=== PATIENT | female | born 1955 | race Caucasian/White ===

== ENCOUNTER → 2017-04-17 | Outpatient (REF) | payer BC, SELFPAY | LOC: M LAB REF 13:01 | PROVIDERS: ATTEND Nurse Practitioner Women's Health | DX: R30.0 Dysuria (principal) ==

== ENCOUNTER → 2017-07-18 | Outpatient (CLI) | payer BC ==
[2017-07-18 07:29] LABS: ALBUMIN 3.3 GM/DL (3.2-5.2); ALBUMIN/GLOBULIN RATIO 1.06 (1.00-1.93); ALKALINE PHOSPHATASE 68 U/L (45-117); ALT/SGPT 22 U/L (12-78); ANION GAP 6 MEQ/L (8-16); AST/SGOT 9 U/L (15-37); BILIRUBIN,TOTAL 0.6 MG/DL (0.2-1.0); BLOOD UREA NITROGEN 12 MG/DL (7-18); CALCIUM LEVEL 8.8 MG/DL (8.8-10.2); CARBON DIOXIDE LEVEL 29 MEQ/L (21-32); CHLORIDE LEVEL 109 MEQ/L (98-107); CHOLESTEROL LEVEL 174 MG/DL (<200); CREATININE FOR GFR 0.67 MG/DL (0.55-1.02); GLOMERULAR FILTRATION RATE > 60.0 (>45); GLUCOSE, FASTING 87 MG/DL (80-110); POTASSIUM SERUM 4.3 MEQ/L (3.5-5.1); SODIUM LEVEL 144 MEQ/L (136-145); TOTAL PROTEIN 6.4 GM/DL (6.4-8.2); TRIGLYCERIDES LEVEL 63 MG/DL (<150)
== END ==
LOC: M LAB 06:20
PROVIDERS: ATTEND Nurse Practitioner Women's Health
DX: Z00.00 Encounter for general adult medical examination without abnormal findings (principal)

== ENCOUNTER → 2018-05-14 | Outpatient (CLI) | payer BC ==
[2018-05-14 07:20] LABS: BASO % 0.7 % (0.0-1.0); EOS # 0.2 10^3/uL (0.0-0.50); EOS % 3.1 % (0.0-3.0); HEMATOCRIT 43.6 % (36.0-47.0); HEMOGLOBIN 14.2 g/dl (12.0-15.5); IMMATURE GRANULOCYTE % 0.3 % (0-3.0); LYMPH # 2.3 10^3/uL (1.5-4.5); LYMPH % 38.4 % (24.0-44.0); MEAN CORPUSCULAR HEMOGLOBIN 29.5 pg (27.0-33.0); MEAN CORPUSCULAR HGB CONC 32.6 g/dl (32.0-36.5); MEAN CORPUSCULAR VOLUME 90.5 fl (80.0-96.0); MONO # 0.6 10^3/uL (0.0-0.8); MONO % 9.5 % (0.0-5.0); NEUTROPHILS # 2.8 10^3/uL (1.8-7.7); PLATELET COUNT, AUTOMATED 379 10^3/uL (150-450); RED BLOOD COUNT 4.82 10^6/uL (4.00-5.40); WHITE BLOOD COUNT 5.9 10^3/uL (4.0-10.0)
[2018-05-14 07:57] LABS: ALBUMIN 3.5 GM/DL (3.2-5.2); ALBUMIN/GLOBULIN RATIO 0.97 (1.00-1.93); ALKALINE PHOSPHATASE 71 U/L (45-117); ALT/SGPT 25 U/L (12-78); ANION GAP 6 MEQ/L (8-16); AST/SGOT 15 U/L (7-37); BILIRUBIN,TOTAL 0.8 MG/DL (0.2-1.0); BLOOD UREA NITROGEN 12 MG/DL (7-18); CALCIUM LEVEL 9.1 MG/DL (8.8-10.2); CARBON DIOXIDE LEVEL 30 MEQ/L (21-32); CHLORIDE LEVEL 108 MEQ/L (98-107); CHOLESTEROL LEVEL 153 MG/DL (<200); CHOLESTEROL RISK RATIO 2.217 (<5); CREATININE FOR GFR 0.79 MG/DL (0.55-1.30); GLOMERULAR FILTRATION RATE > 60.0 (>45); GLUCOSE, FASTING 83 MG/DL (70-100); HDL CHOLESTEROL 69 MG/DL (>40); NON-HDL-C 84 MG/DL; POTASSIUM SERUM 4.7 MEQ/L (3.5-5.1); SODIUM LEVEL 144 MEQ/L (136-145); TOTAL PROTEIN 7.1 GM/DL (6.4-8.2); TRIGLYCERIDES LEVEL 75 MG/DL (<150)
== END ==
LOC: M LAB 06:10
DX: Z00.00 Encounter for general adult medical examination without abnormal findings (principal)
CPT/HCPCS: 80053

== ENCOUNTER → 2019-05-10 | Outpatient (CLI) | payer OTHER ==
[2019-05-10 07:53] LABS: ALBUMIN 3.5 GM/DL (3.2-5.2); ALT/SGPT 22 U/L (12-78); BILIRUBIN,TOTAL 0.5 MG/DL (0.2-1.0); BLOOD UREA NITROGEN 12 MG/DL (7-18); CALCIUM LEVEL 8.7 MG/DL (8.8-10.2); CARBON DIOXIDE LEVEL 28 MEQ/L (21-32); CHLORIDE LEVEL 110 MEQ/L (98-107); CHOLESTEROL LEVEL 153 MG/DL (<200); CHOLESTEROL RISK RATIO 2.095 (<5); CREATININE FOR GFR 0.79 MG/DL (0.55-1.30); FREE T4 1.03 NG/DL (0.76-1.46); GLOMERULAR FILTRATION RATE > 60.0 (>45); GLUCOSE, FASTING 80 MG/DL (70-100); HDL CHOLESTEROL 73 MG/DL (>40); LDL CHOLESTEROL 70 MG/DL (<100); NON-HDL-C 80 MG/DL; POTASSIUM SERUM 4.5 MEQ/L (3.5-5.1); SODIUM LEVEL 143 MEQ/L (136-145); TOTAL PROTEIN 6.5 GM/DL (6.4-8.2); TRIGLYCERIDES LEVEL 52 MG/DL (<150)
== END ==
LOC: M LAB 06:03
PROVIDERS: ATTEND Nurse Practitioner Women's Health
DX: Z00.00 Encounter for general adult medical examination without abnormal findings (principal)

== ENCOUNTER → 2020-05-22 | Outpatient (CLI) | payer OTHER ==
[2020-05-22 06:58] LABS: BASO # 0.1 10^3/uL (0.0-0.2); EOS # 0.2 10^3/uL (0.0-0.5); EOS % 3.8 % (0.0-3.0); HEMATOCRIT 45.2 % (36.0-47.0); HEMOGLOBIN 14.8 g/dl (12.0-15.5); LYMPH # 2.2 10^3/uL (1.5-5.0); LYMPH % 36.3 % (24.0-44.0); MEAN CORPUSCULAR HEMOGLOBIN 31.1 pg (27.0-33.0); MEAN CORPUSCULAR HGB CONC 32.7 g/dl (32.0-36.5); MONO # 0.5 10^3/uL (0.0-0.8); MONO % 7.9 % (0.0-5.0); NEUTROPHILS % 50.8 % (36.0-66.0); PLATELET COUNT, AUTOMATED 372 10^3/uL (150-450); RED BLOOD COUNT 4.76 10^6/uL (4.00-5.40)
[2020-05-22 07:59] LABS: CHOLESTEROL RISK RATIO 2.522 (<5)
== END ==
LOC: M LAB 06:12
PROVIDERS: ATTEND Obstetrics & Gynecology
DX: N95.9 Unspecified menopausal and perimenopausal disorder (principal)

== ENCOUNTER → 2020-05-26 | Outpatient (REF) | payer OTHER ==
[2020-05-26 15:28] LABS: APPEARANCE, URINE CLEAR (CLEAR); BACTERIA, URINE AUTO NEGATIVE (NEGATIVE); BILIRUBIN, URINE AUTO NEGATIVE (NEGATIVE); BLOOD, URINE BLOOD NEGATIVE (NEGATIVE); COLOR, URINE YELLOW (YELLOW); GLUCOSE, URINE (UA) AUTO NEGATIVE (NEGATIVE); KETONE, URINE AUTO NEGATIVE (NEGATIVE); LEUKOCYTE ESTERASE, URINE AUTO NEGATIVE (NEGATIVE); MUCUS, URINE SMALL (NEGATIVE); NITRITE, URINE AUTO NEGATIVE (NEGATIVE); PROTEIN, URINE AUTO NEGATIVE (NEGATIVE); RBC, URINE AUTO 1 /HPF (0-3); SPECIFIC GRAVITY URINE AUTO 1.008 (1.002-1.035); SQUAMOUS EPITHELIAL CELL UR AU 0 /HPF (0-6); UROBILINOGEN, URINE AUTO 0.2 mg/dL (0.0-2.0); WBC, URINE AUTO 1 /HPF (0-3)
== END ==
LOC: M LAB REF 13:07
PROVIDERS: ATTEND Obstetrics & Gynecology
DX: N76.0 Acute vaginitis (principal)

== ENCOUNTER → 2020-09-27 | Outpatient (CLI) | payer OTHER ==
--- NOTE | 2020-09-27 14:11 | REP ---
INDICATION: LEFT SIDED PELVIC PAIN. COMPARISON: None. TECHNIQUE: Transabdominal and transvaginal scanning were performed. FINDINGS: Uterine dimensions are normal at 7.0 x 2.3 x 4.0 cm. Endometrial echo is 0.3 cm thick and centrally placed. No free fluid is seen in the cul-de-sac. Visualized bladder diaz are smooth. No focal uterine mass is seen. There is a trace of endometrial fluid. The right ovary has dimensions of 1.2 x 0.8 x 0.8 cm. Left ovary is not seen either transabdominally or transvaginally. No left adnexal mass or cyst is seen.. Visualized urinary bladder diaz are smooth. IMPRESSION: Negative pelvic sonography. Left ovary not directly visualized. No abnormality noted.. <Electronically signed by Cody Kelly > 09/27/20 [id number]
== END ==
LOC: M RAD 12:56
PROVIDERS: ATTEND Internal Medicine
DX: R10.2 Pelvic and perineal pain (principal)

== ENCOUNTER → 2020-12-21 | Outpatient (CLI) | payer OTHER ==
[~2020-12-21] MED LIST: ESTR10TA
== END ==
LOC: M LABSMTC 11:33
PROVIDERS: ATTEND Anesthesiology
DX: Z01.812 Encounter for preprocedural laboratory examination (principal); Z20.822 Contact with and (suspected) exposure to COVID-19

== ENCOUNTER 2020-12-26 08:32 | Day surgery (SDC) | payer OTHER ==
[~2020-12-26] VITALS: Ht 162.6 cm; Wt 79.4 kg
[~2020-12-26 08:32] MED LIST changes: -ACET-907 PO; -IBUP-1114 PO; +LIDOCAINE 2% 100MG/5ML SDV (FOR ANES.) As Ordered ONE; +NS 1,000 ML IV ONE; +propofoL 200 MG/20 ML VIAL As Ordered ONE
--- NOTE | 2020-12-26 10:32 | ROOR ---
Patient Name: Lauren Lisa Procedure Date: 12/26/2020 9:43 AM Date of : 1955 Age: 65 Room: [facility] Gender: Female Note Status: Finalized Procedure: Colonoscopy Indications: Screening for colorectal malignant neoplasm Providers: Kanu Evans MD Referring MD: Fabiana Carter DO Requesting Provider: Medicines: Monitored Anesthesia Care Complications: No immediate complications. Procedure: Pre-Anesthesia Assessment: - Prior to the procedure, a History and Physical was performed, and patient medications and allergies were reviewed. The patient is competent. The risks and benefits of the procedure and the sedation options and risks were discussed with the patient. All questions were answered and informed consent was obtained. Patient identification and proposed procedure were verified by the physician, the nurse and the anesthesiologist in the procedure room. Mental Status Examination: alert and oriented. Airway Examination: normal oropharyngeal airway and neck mobility. Respiratory Examination: clear to auscultation. CV Examination: normal. Prophylactic Antibiotics: The patient does not require prophylactic antibiotics. Prior Anticoagulants: The patient has taken no previous anticoagulant or antiplatelet agents. ASA Grade Assessment: II - A patient with mild systemic disease. After reviewing the risks and benefits, the patient was deemed in satisfactory condition to undergo the procedure. The anesthesia plan was to use monitored anesthesia care (MAC). Immediately prior to administration of medications, the patient was re-assessed for adequacy to receive sedatives. The heart rate, respiratory rate, oxygen saturations, blood pressure, adequacy of pulmonary ventilation, and response to care were monitored throughout the procedure. The physical status of the patient was re-assessed after the procedure. The Colonoscope was introduced through the anus and advanced to the terminal ileum, with identification of the appendiceal orifice and IC valve. The colonoscopy was performed without difficulty. The patient tolerated the procedure well. The quality of the bowel preparation was good. The terminal ileum, ileocecal valve, appendiceal orifice, and rectum were photographed. Scope insertion time was 2 minutes. Scope withdrawal time was 9 minutes. The total duration of the procedure was 12 minutes. Findings: The perianal and digital rectal examinations were normal. The terminal ileum appeared normal. Multiple small and large-mouthed diverticula were found from ascending colon to sigmoid colon. There was no evidence of diverticular bleeding. External and internal hemorrhoids were found during retroflexion. The hemorrhoids were medium-sized. Impression: - The examined portion of the ileum was normal. - Mild diverticulosis from ascending colon to sigmoid colon. There was no evidence of diverticular bleeding. - External and internal hemorrhoids. - No specimens collected. Recommendation: - Patient has a contact number available for emergencies. The signs and symptoms of potential delayed complications were discussed with the patient. Return to normal activities tomorrow. Written discharge instructions were provided to the patient. - High fiber diet. - Continue present medications. - Repeat colonoscopy is not recommended due to current age (66 years or older) depending on clinical and functional status. - Telephone GI clinic if symptomatic in 2 weeks. - Return to primary care physician. Procedure Code(s): --- Professional --- 65131, Colonoscopy, flexible; diagnostic, including collection of specimen(s) by brushing or washing, when performed (separate procedure) Diagnosis Code(s): --- Professional --- Z12.11, Encounter for screening for malignant neoplasm of colon K64.8, Other hemorrhoids K57.30, Diverticulosis of large intestine without perforation or abscess without bleeding CPT copyright 2019 [employer]. All rights reserved. The codes documented in this report are preliminary and upon information coder review may be revised to meet current compliance requirements. Kanu Evans MD Kanu Evans MD 12/26/2020 10:32:31 AM Electronically signed by Kanu Evans MD Number of Addenda: 0 Note Initiated On: 12/26/2020 9:43 AM Estimated Blood Loss: Estimated blood loss was minimal.
[2020-12-26 10:47] VITALS: BP 145/91
[2020-12-28] MEDS ORDERED: ACET-907 PO (14:07)
[2020-12-28] MEDS ORDERED: IBUP-1114 PO (14:07)
== END 2020-12-26 10:55 | disposition home or self-care (01) ==
LOC: M OPP 08:32
PROVIDERS: ATTEND Internal Medicine Gastroenterology
DX: Z12.11 Encounter for screening for malignant neoplasm of colon (principal); K57.30 Diverticulosis of large intestine without perforation or abscess without bleeding; K64.8 Other hemorrhoids; Z79.899 Other long term (current) drug therapy; Z88.2 Allergy status to sulfonamides; Z88.8 Allergy status to other drugs, medicaments and biological substances; S82.64XA Nondisplaced fracture of lateral malleolus of right fibula, initial encounter for closed fracture; X58.XXXA Exposure to other specified factors, initial encounter; Y92.9 Unspecified place or not applicable; Y99.9 Unspecified external cause status
CPT/HCPCS: 73610; G0121

== ENCOUNTER → 2020-12-26 | Outpatient (CLI) | payer OTHER ==
[~2020-12-26] MED LIST changes: +ACET-907 PO; +IBUP-1114 PO
--- NOTE | 2020-12-27 04:31 | REP ---
INDICATION: PAIN IN RIGHT ANKLE. COMPARISON: None. TECHNIQUE: AP, lateral, oblique views of the right ankle FINDINGS: There is an acute oblique fracture of the distal fibular metaphysis with overlying soft tissue swelling. Remainder of the examination demonstrates generalized age-related changes. IMPRESSION: Acute nondisplaced fracture of the distal fibula with soft tissue swelling. <Electronically signed by Pradip Avery > 12/27/20 0427
== END ==
LOC: M SOG 13:40
PROVIDERS: ATTEND Orthopaedic Surgery Sports Medicine
DX: S82.64XA Nondisplaced fracture of lateral malleolus of right fibula, initial encounter for closed fracture (principal); X58.XXXA Exposure to other specified factors, initial encounter; Y92.9 Unspecified place or not applicable; Y99.9 Unspecified external cause status

== ENCOUNTER → 2020-12-29 | Outpatient (CLI) | payer OTHER ==
[~2020-12-29] MED LIST changes: +ACET-907 PO; +IBUP-1114 PO; -LIDOCAINE 2% 100MG/5ML SDV (FOR ANES.) As Ordered ONE; -NS 1,000 ML IV ONE; -propofoL 200 MG/20 ML VIAL As Ordered ONE
== END ==
LOC: M LABSMTC 12:47
PROVIDERS: ATTEND Anesthesiology
DX: Z11.52 Encounter for screening for COVID-19 (principal)

== ENCOUNTER 2021-01-03 07:59 | Day surgery (SDC) | payer OTHER ==
[~2021-01-03] VITALS: Ht 162.6 cm; Wt 79.4 kg
[~2021-01-03 07:59] MED LIST changes: +LR 1,000 ML IV ONE; +ceFAZolin SOD 2 GM in IV 1 EA IV ONE
[2021-01-03] MEDS ORDERED: LIDOCAINE 2% 100MG/5ML SDV (FOR ANES.) As Ordered ONE (08:39)
[2021-01-03] MEDS ORDERED: ONDANSETRON 4MG/2ML VIAL As Ordered ONE (08:39)
[2021-01-03] MEDS ORDERED: HYDROmorphone HCL 2 MG/ML 1ML VIAL (J1170) As Ordered ONE (08:39)
[2021-01-03] MEDS ORDERED: dexameTHASONE 4 MG/ML 1ML VIAL (J1100 PER 1MG) As Ordered ONE (08:39)
[2021-01-03] MEDS ORDERED: ROCURONIUM BROMIDE 50 MG/5 ML VIAL As Ordered ONE (08:39)
[2021-01-03] MEDS ORDERED: MIDAZOLAM INJ 2MG/2ML VIAL (J2250 PER 1MG) As Ordered ONE (08:39)
[2021-01-03] MEDS ORDERED: fentaNYL 100 MCG/2 ML INJECTION (J3010) As Ordered ONE (08:39)
[2021-01-03] MEDS ORDERED: propofoL 200 MG/20 ML VIAL As Ordered ONE ×3 (08:39→14:06)
--- NOTE | 2021-01-03 10:17 | ECGEPIP ---
[facility] Test Date: 2021-01-03 Pat Name: JOSE F ELIZALDE Department: Room: - Gender: Female Color Developer: ARANZA : 1955 Requested By: Geoff Licona Order Number: [id number] Reading MD: Juan Zhu Measurements Intervals Sanderson Rate: 77 P: 61 MI: 154 QRS: -17 QRSD: 88 T: 55 QT: 362 QTc: 409 Interpretive Statements Normal sinus rhythm Leftward Sanderson LEFT VENTRICULAR HYPERTROPHY by Humberto criteria No prior tracing for comparison Electronically Signed on 01-03-2021 10:17:19 EDT by Juan Zhu
[2021-01-03] MEDS ORDERED: ceFAZolin 1GM VIAL (J0690 PER 500MG) As Ordered ONE (11:20)
[2021-01-03] MEDS ORDERED: BUPIVACAINE/EPIN 0.25% 30 ML VIAL As Ordered ONE (12:04)
[2021-01-03] MEDS ORDERED: ACETAMINOPHEN 1000MG 100ML IV BTL (OFIRMEV) (J0131 PER 10MG) As Ordered ONE (12:20)
[2021-01-03] MEDS ORDERED: PHENYLephrine 500MCG 5ML (100MCG/ML) SYRINGE As Ordered ONE (13:00)
--- NOTE | 2021-01-03 13:05 | REP ---
INDICATION: RIGHT ANKLE FRACTURE. COMPARISON: 12/26/2020. TECHNIQUE: Multiple C-arm views right ankle. FINDINGS: Metallic plate and screws are placed in the distal fibula. The osseous structures are well-aligned. The ankle mortise is anatomic. IMPRESSION: 22 seconds fluoroscopy time utilized. <Electronically signed by Yosef Fischer > 01/03/21 [id number]
[2021-01-03] MEDS ORDERED: MORPHINE 2 MG/ML 1ML VIAL (J2270) IV PRN (13:30)
[2021-01-03] MEDS ORDERED: fentaNYL 100 MCG/2 ML INJECTION (J3010) IV PRN (13:30)
[2021-01-03] MEDS ORDERED: ONDANSETRON 4MG/2ML VIAL IV PRN ×2 (13:30)
[2021-01-03] MEDS ORDERED: ACETAMINOPHEN TAB 650MG DOSE (2X325MG) PO PRN (13:30)
[2021-01-03] MEDS ORDERED: oxyCODONE 5MG TAB PO PRN (13:30)
[2021-01-03] MEDS ORDERED: PERCOCET 5MG/325MG TAB PO PRN (13:30)
[2021-01-03] MEDS ORDERED: LR 1,000 ML IV SCH ×2 (13:30)
--- NOTE | 2021-01-03 13:41 | ROOPDOC ---
[facility] Report Of Operation Report of Operation DATE OF PROCEDURE: 01/03/21 PREPROCEDURE DIAGNOSES: Right ankle fracture. POSTPROCEDURE DIAGNOSES: Right ankle fracture. PROCEDURE: Right ankle open reduction internal fixation. SURGEON: Dr. Josy Lee MD PRODUCTION ADMINISTRATOR: MD ANESTHESIA: Spinal anesthesia dr infante. ESTIMATED BLOOD LOSS: Approximately 30 mL. COMPLICATIONS: None. REMARKS: None. PROCEDURE NOTE: This 65-year-old female had a trip and fall at home while prepa ring for a colonoscopy. She had a slightly displaced Hall B fracture. We discussed the pros and cons risks and benefits of nonsurgical versus surgical management of this. I reiterated the risks in preoperative holding delia the right lower extremity and proceed to surgery. DESCRIPTION OF PROCEDURE: Patient was brought to the operating theater. They were placed supine on the operating room table. . Spinal anesthesia was given. 2 g of IV Ancef was administered prior to the start of the case. Bone foam leg monae was used as well as a bump under the right hip. 34 inch tourniquet was applied to the right thigh and properly padded. Limb was prepped and draped with chlorhexidine-based prep solution over 3 minutes drying time prior to draping. Preoperative timeout was performed to confirm the site the patient and the surgery. I began by elevating the limb and inflating the tourniquet to 250 mmHg. Total tourniquet time was 39 minutes. I made a standard lateral incision to the distal fibula. I carried the dissection down through skin and subcutaneous tissue achieving meticulous hemostasis. Identified the fracture site. I cleared away any interposed fracture hematoma and periosteum. I achieved a preliminary reduction using fracture forceps. I placed a 2.7 mm fully threaded cortical screw lag by technique in an oblique fashion across the slightly oblique fracture site. There is some mild comminution anteriorly this reduced nicely with the lag screw placement. I then selected a 8 hole one third tubular plate. I precontoured distal lateral aspect of the plate to the distal fibula. I inserted 3 fully threaded cortical screws proximally to the fracture as well as one fully threaded cortical screw distally and 2 fully threaded 4.0 mm cancellous screw in the distal aspect of the plate. I took AP mortise and lateral radiographs to confirm proper fracture reduction and plate placement. I performed a lateral stress test as well as a cotton test. Syndesmosis was stable. Joint appeared congruent mortise was normal. Dime sign normal. I took down the tourniquet. I thoroughly irrigated the wounds. Subcutaneous tissue closed with 2-0 Vicryl suture and skin with bay. 10 mL of quarter percent Marcaine with epinephrine was instilled around the incision site. Skin cleaned with wet and dry dressing followed by application of Adaptic 4 x 8 gauze and sterile cast padding and 3 sided plaster of Mary splint in a below-knee fashion over wrapped with 6 inch Christopher bandages. Splint was allowed to fully dry with the ankle in neutral. Tourniquet and drapes removed. Patient transferred off the operating room table and taken to postanesthetic care unit in stable condition. All sponge needle and instrument counts were correct. No complications. Estimated blood loss 30 mL. Plan the patient is to be nonweightbearing for 6 weeks. I will change them to an orthosis boot at 2 weeks' time follow-up in the clinic in 2 weeks. They may be discharged home when they are comfortable. Prescription is sent to the pharmacy of choice electronically. No DVT prophylaxis patient is healthy and mobile. Postoperative wound instructions were given. It was recommended to keep the wound clean and dry. Dressing changes as needed. It was reinforced with the patient that they should call us or be seen immediately for redness, drainage, or fever. Risk factors for harms from taking opioid medications discussed and assessed including but not limited to personal or family history of substance use disorder, anxiety or depression, , age 65 or older, COPD or other underlying respiratory conditions, and renal or hepatic insufficiency. Discussed with patient concerns and determined any harms they may experience or be currently experiencing such as nausea or constipation, feeling sedated or confused, breathing interruptions during sleep, or taking or craving more opioids than prescribed or difficulty controlling use (addiction). Discussed early warning signs of overdose including confusion, sedation, slurred speech, abnormal gait. JOSY LEE MD Jan 03, 2021 13:41
[2021-01-03 16:50] VITALS: BP 150/83
== END 2021-01-03 16:50 | disposition home or self-care (01) ==
LOC: M SDC 07:59
PROVIDERS: ATTEND Orthopaedic Surgery Sports Medicine
DX: S82.841A Displaced bimalleolar fracture of right lower leg, initial encounter for closed fracture (principal); W01.0XXA Fall on same level from slipping, tripping and stumbling without subsequent striking against object, initial encounter; Y92.89 Other specified places as the place of occurrence of the external cause; Y93.9 Activity, unspecified; Y99.9 Unspecified external cause status; Z88.2 Allergy status to sulfonamides; Z88.8 Allergy status to other drugs, medicaments and biological substances; Z91.81 History of falling
CPT/HCPCS: 27792; 76000; 93005; C1713; J0131; J0690; J1100; J1170; J2250; J2370; J2405; J3010

== ENCOUNTER → 2021-01-16 | Outpatient (CLI) | payer OTHER ==
[~2021-01-16] MED LIST changes: -LR 1,000 ML IV ONE; -ceFAZolin SOD 2 GM in IV 1 EA IV ONE
--- NOTE | 2021-01-16 11:50 | REP ---
INDICATION: F/U. COMPARISON: 12/26/2020 TECHNIQUE: AP, lateral, bilateral oblique views of the right ankle. FINDINGS: Patient is noted to be status post satisfactory open reduction and fixation for distal fibular fracture. Underlying stable chronic degenerative changes noted. IMPRESSION: Evidence for prior open reduction and fixation. <Electronically signed by Pradip Avery > 01/16/21 1140
== END ==
LOC: M SOG 10:44
PROVIDERS: ATTEND Orthopaedic Surgery Sports Medicine
DX: Z47.89 Encounter for other orthopedic aftercare (principal); Z87.81 Personal history of (healed) traumatic fracture; M19.071 Primary osteoarthritis, right ankle and foot

== ENCOUNTER 2021-01-24 10:45 | Outpatient (RCR) | payer OTHER | END 2021-01-26 | LOC: M PT 10:45 | PROVIDERS: ATTEND Orthopaedic Surgery Sports Medicine | DX: Z47.89 Encounter for other orthopedic aftercare (principal) ==

== ENCOUNTER → 2021-02-13 | Outpatient (CLI) | payer OTHER ==
--- NOTE | 2021-02-14 03:15 | REP ---
INDICATION: POST OP. COMPARISON: 01/16/2021, 12/26/2020 TECHNIQUE: AP, lateral, bilateral oblique views of the right ankle. FINDINGS: Patient is status post satisfactory open reduction and fixation for distal fibular fracture. Chronic age-related degenerative changes at the ankle noted. IMPRESSION: Satisfactory open reduction and fixation for distal fibular fracture. <Electronically signed by Pradip Avery > 02/14/21 [id number]
== END ==
LOC: M SOG 11:40
PROVIDERS: ATTEND Orthopaedic Surgery Sports Medicine
DX: Z47.89 Encounter for other orthopedic aftercare (principal)

== ENCOUNTER 2021-02-22 08:30 | Outpatient (RCR) | payer OTHER | END 2021-02-26 | LOC: M PT 08:30 | PROVIDERS: ATTEND Orthopaedic Surgery Sports Medicine | DX: Z47.89 Encounter for other orthopedic aftercare (principal); S82.61XD Displaced fracture of lateral malleolus of right fibula, subsequent encounter for closed fracture with routine healing; X58.XXXD Exposure to other specified factors, subsequent encounter; Y92.9 Unspecified place or not applicable; Y93.9 Activity, unspecified; Y99.9 Unspecified external cause status ==

== ENCOUNTER 2021-03-27 09:10 | Outpatient (RCR) | payer OTHER | END 2021-03-28 | LOC: M PT 09:10 | PROVIDERS: ATTEND Orthopaedic Surgery Sports Medicine | DX: S82.61XD Displaced fracture of lateral malleolus of right fibula, subsequent encounter for closed fracture with routine healing (principal); X58.XXXD Exposure to other specified factors, subsequent encounter; Y92.9 Unspecified place or not applicable; Y93.9 Activity, unspecified; Y99.9 Unspecified external cause status; Z47.89 Encounter for other orthopedic aftercare ==

== ENCOUNTER → 2021-03-29 | Outpatient (CLI) | payer OTHER ==
--- NOTE | 2021-03-29 15:09 | REP ---
INDICATION: DISP FX OF LATERAL MALLEOLUS OF R FIBULA. COMPARISON: Comparison right ankle radiographs are from January 16, 2021.. TECHNIQUE: Four views of the right ankle are provided. FINDINGS: A screw plate fixation device remains in place in the distal fibula. Ankle mortise is intact. There is medial malleolar spurring. Plantar calcaneal spurring is noted. These findings are unchanged. No change in position of the distal fibula. The fracture radiolucency is less apparent consistent with healing. IMPRESSION: Healing distal fibular fracture. Screw plate fixation device in place in the distal fibula. <Electronically signed by Cody Kelly > 03/29/21 [id number]
== END ==
LOC: M SOG 13:45
PROVIDERS: ATTEND Orthopaedic Surgery Sports Medicine
DX: S82.61XD Displaced fracture of lateral malleolus of right fibula, subsequent encounter for closed fracture with routine healing (principal)

== ENCOUNTER 2021-04-24 09:09 | Outpatient (RCR) | payer OTHER | END 2021-04-28 | LOC: M PT 09:09 | PROVIDERS: ATTEND Orthopaedic Surgery Sports Medicine | DX: S82.61XD Displaced fracture of lateral malleolus of right fibula, subsequent encounter for closed fracture with routine healing (principal); Z47.89 Encounter for other orthopedic aftercare; X58.XXXD Exposure to other specified factors, subsequent encounter; Y92.9 Unspecified place or not applicable; Y93.9 Activity, unspecified; Y99.9 Unspecified external cause status ==

== ENCOUNTER 2021-05-09 09:06 | Outpatient (RCR) | payer OTHER | END 2021-05-29 | LOC: M PT 09:06 | PROVIDERS: ATTEND Orthopaedic Surgery Sports Medicine | DX: S82.61XD Displaced fracture of lateral malleolus of right fibula, subsequent encounter for closed fracture with routine healing (principal); Z47.89 Encounter for other orthopedic aftercare; X58.XXXD Exposure to other specified factors, subsequent encounter; Y92.9 Unspecified place or not applicable; Y93.9 Activity, unspecified; Y99.9 Unspecified external cause status ==

== ENCOUNTER → 2021-06-07 | Outpatient (CLI) | payer OTHER ==
--- NOTE | 2021-06-07 11:41 | REP ---
INDICATION: ORTHOPEDIC AFTERCARE. COMPARISON: Multiple latest 03/29/2021 TECHNIQUE: Three views FINDINGS: S/p ORIF status quo. No acute fracture. No change in the internal fixation plate or screws. No significant change in appearance of the degree of bony mineralization. IMPRESSION: No significant change <Electronically signed by David Rust > 06/07/21 [id number]
== END ==
LOC: M SOG 09:49
PROVIDERS: ATTEND Orthopaedic Surgery Sports Medicine
DX: Z47.89 Encounter for other orthopedic aftercare (principal); Z87.81 Personal history of (healed) traumatic fracture

== ENCOUNTER → 2021-12-31 | Outpatient (CLI) | payer OTHER | LOC: M RAD 06:42 | PROVIDERS: ATTEND Internal Medicine | DX: Z13.6 Encounter for screening for cardiovascular disorders (principal) ==

== ENCOUNTER → 2022-03-15 | Outpatient (REF) | payer OTHER ==
[2022-03-15 12:42] LABS: APPEARANCE, URINE CLEAR (CLEAR); BACTERIA, URINE AUTO 1+ (NEGATIVE); BILIRUBIN, URINE AUTO NEGATIVE (NEGATIVE); BLOOD, URINE BLOOD NEGATIVE (NEGATIVE); COLOR, URINE STRAW (YELLOW); GLUCOSE, URINE (UA) AUTO NEGATIVE (NEGATIVE); KETONE, URINE AUTO NEGATIVE (NEGATIVE); LEUKOCYTE ESTERASE, URINE AUTO NEGATIVE (NEGATIVE); NITRITE, URINE AUTO NEGATIVE (NEGATIVE); PROTEIN, URINE AUTO NEGATIVE (NEGATIVE); RBC, URINE AUTO 0 /HPF (0-3); SPECIFIC GRAVITY URINE AUTO 1.002 (1.002-1.035); SQUAMOUS EPITHELIAL CELL UR AU 3 /HPF (0-6); UROBILINOGEN, URINE AUTO 0.2 mg/dL (0.0-2.0); WBC, URINE AUTO 0 /HPF (0-3)
== END ==
LOC: M LAB REF 11:52
PROVIDERS: ATTEND Obstetrics & Gynecology
DX: R39.89 Other symptoms and signs involving the genitourinary system (principal)

== ENCOUNTER → 2022-04-22 | Outpatient (CLI) | payer OTHER ==
[~2022-04-22] MED LIST changes: +CVS1CAP2 PO; -ESTR10TA; +ESTR10TA VG; +GLUC1CAP10 PO; +RA T500C2 PO; +VALS1TAB66 PO; +VITA-243 PO; +VITA100093 PO; +VITMTA PO
== END ==
LOC: M LABSMTC 10:47
PROVIDERS: ATTEND Anesthesiology
DX: Z01.812 Encounter for preprocedural laboratory examination (principal); Z20.822 Contact with and (suspected) exposure to COVID-19

== ENCOUNTER 2022-04-26 08:08 | Day surgery (SDC) | payer OTHER ==
[~2022-04-26] VITALS: Ht 162.6 cm; Wt 83.0 kg
[~2022-04-26 08:08] MED LIST changes: +BSS IRR 500ML/OMIDRIA 4ML IRR BAG (OR ONLY) As Ordered ONE; +LIDOCAINE 1% SDV 5ML VIAL As Ordered ONE; +OFLOXACIN 0.3 % (OCUFLOX) OPTH SOL 5ML OS SCH; +PHENYLEPHRINE 2.5% OPHTH SOL 2ML OS SCH; +PROPARACAINE 0.5% OPHTH SOL 15ML OS ONE; +TROPICAMIDE 1% OPHTH SOLN 2ML OS SCH
[2022-04-26] MEDS ORDERED: fentaNYL 100 MCG/2 ML INJECTION As Ordered ONE (10:42)
[2022-04-26] MEDS ORDERED: MIDAZOLAM INJ 2MG/2ML VIAL (J2250 PER 1MG) As Ordered ONE (10:42)
[2022-04-26] MEDS ORDERED: CEFUROXIME 1MG/0.1ML INTRACAMERAL INJ As Ordered ONE (10:50)
[2022-04-26 12:20] VITALS: BP 160/82
== END 2022-04-26 12:20 | disposition home or self-care (01) ==
LOC: M SDC 08:08
PROVIDERS: ATTEND Ophthalmology
DX: H25.12 Age-related nuclear cataract, left eye (principal); I10 Essential (primary) hypertension; N95.2 Postmenopausal atrophic vaginitis; Z88.2 Allergy status to sulfonamides; Z79.899 Other long term (current) drug therapy
CPT/HCPCS: 66984; J0697; J1097; J2250; J3010; V2787

== ENCOUNTER → 2022-05-07 | Outpatient (CLI) | payer OTHER ==
[~2022-05-07] MED LIST changes: -BSS IRR 500ML/OMIDRIA 4ML IRR BAG (OR ONLY) As Ordered ONE; -LIDOCAINE 1% SDV 5ML VIAL As Ordered ONE; -OFLOXACIN 0.3 % (OCUFLOX) OPTH SOL 5ML OS SCH; -PHENYLEPHRINE 2.5% OPHTH SOL 2ML OS SCH; -PROPARACAINE 0.5% OPHTH SOL 15ML OS ONE; -TROPICAMIDE 1% OPHTH SOLN 2ML OS SCH; +VALS40TA9 PO
== END ==
LOC: M LABSMTC 09:15
PROVIDERS: ATTEND Anesthesiology
DX: Z01.812 Encounter for preprocedural laboratory examination (principal); Z20.822 Contact with and (suspected) exposure to COVID-19

== ENCOUNTER 2022-05-10 09:18 | Day surgery (SDC) | payer OTHER ==
[~2022-05-10] VITALS: Ht 165.1 cm; Wt 83.9 kg
[~2022-05-10 09:18] MED LIST changes: +ACETYLCHOLINE OPHTH SOLN 1% 2ML (MIOCHOL-E) As Ordered ONE; +CEFUROXIME 1MG/0.1ML INTRACAMERAL INJ As Ordered ONE; +LIDOCAINE 1% SDV 5ML VIAL As Ordered ONE; +PROPARACAINE 0.5% OPHTH SOL 15ML OD ONE
[2022-05-10] MEDS: TROPICAMIDE 1% OPHTH SOLN 2ML OD SCH ×2 (10:04→10:34)
[2022-05-10] MEDS: OFLOXACIN 0.3 % (OCUFLOX) OPTH SOL 5ML OD SCH ×2 (10:05→10:34)
[2022-05-10] MEDS: PHENYLEPHRINE 2.5% OPHTH SOL 2ML OD SCH ×2 (10:05→10:34)
[2022-05-10] MEDS ORDERED: BSS IRR 500ML/OMIDRIA 4ML IRR BAG (OR ONLY) As Ordered ONE (10:22)
[2022-05-10] MEDS ORDERED: MIDAZOLAM INJ 2MG/2ML VIAL (J2250 PER 1MG) As Ordered ONE (11:03)
[2022-05-10] MEDS ORDERED: fentaNYL 100 MCG/2 ML INJECTION As Ordered ONE (11:03)
[2022-05-10 11:53] VITALS: BP 149/81
== END 2022-05-10 12:19 | disposition home or self-care (01) ==
LOC: M SDC 09:18
PROVIDERS: ATTEND Ophthalmology
DX: H25.11 Age-related nuclear cataract, right eye (principal); I10 Essential (primary) hypertension; Z79.899 Other long term (current) drug therapy; Z88.2 Allergy status to sulfonamides; Z88.1 Allergy status to other antibiotic agents
CPT/HCPCS: 66984; J0697; J1097; J2250; J3010

== ENCOUNTER → 2022-06-21 | Outpatient (REF) | payer OTHER ==
[~2022-06-21] MED LIST changes: -ACETYLCHOLINE OPHTH SOLN 1% 2ML (MIOCHOL-E) As Ordered ONE; -CEFUROXIME 1MG/0.1ML INTRACAMERAL INJ As Ordered ONE; -LIDOCAINE 1% SDV 5ML VIAL As Ordered ONE; -PROPARACAINE 0.5% OPHTH SOL 15ML OD ONE
== END ==
LOC: M LAB REF 17:07
PROVIDERS: ATTEND Internal Medicine
DX: G60.9 Hereditary and idiopathic neuropathy, unspecified (principal)